=== PATIENT | female | born 1980 | race American Indian/Alaskan Native ===

== ENCOUNTER 2017-04-13 11:35 | Emergency (ER) | payer SELFPAY ==
[2017-04-13 11:47] VITALS: BP 119/73
[2017-04-13] MEDS ORDERED: MOTRIN PO ONE (14:19)
--- NOTE | 2017-04-13 14:25 | Emergency Department Report ---
Chief Complaint: Extremity Injury, Lower Stated Complaint: RIGHT FOOT/ANKLE PAIN Time Seen by Provider: 04/13/17 13:55 - HPI History of Present Illness: Patient is a 37-year-old Pakistani female who states that she has had pain for the last month her right ankle and right foot. Patient states she fell while walking on some stairs. Patient did not receive medical care at that time. Patient states the pain is 8 out of 10 in severity. She is having a limp with ambulation. Patient states that she has a difficult time wearing some shoes. - ROS Review of Systems: Review of systems is negative except for those elements in the HPI - Exam Vital Signs: Vital Signs 04/13/17 11:45 Temperature 98.3 F Pulse Rate 79 Respiratory 18 Rate Blood Pressure 119/73 O2 Sat by Pulse 96 Oximetry Physical Exam: Focused physical exam there is tenderness at the lateral malleolus of the right lower extremity with minor swelling. There is also pain on the dorsum of the right foot. No deformity no laceration no bruising is noted at this time MSE screening note: Focused history and physical exam performed. Due to findings the following was ordered: An x-ray of the right ankle and foot has been ordered ED Disposition for MSE Condition: Stable Referrals: PRIMARY CARE [Primary Care Provider] - 3-5 Days
--- NOTE | 2017-04-13 14:53 | XRay Report ---
RIGHT FOOT, 3 views: History: Fall The bony architecture is intact. Bony alignment is normal. No soft tissue abnormalities are seen. The joint spaces appear preserved. IMPRESSION: Normal right foot.
--- NOTE | 2017-04-13 14:53 | XRay Report ---
RIGHT ANKLE, 3 views: History: Fall. Bone mineralization is normal. No acute osseous abnormality or joint pathology is identified. The soft tissues are unremarkable. IMPRESSION: Normal study.
--- NOTE | 2017-04-13 15:20 | Emergency Department Report ---
HPI - General Chief Complaint: Extremity Injury, Lower Time Seen by Provider: 04/13/17 13:55 - HPI HPI: This is a 37-year-old female who presents to ED with right ankle pain 1 month. Patient was initially screened by Dr. Berrios. She denies any other symptoms. SEE MSE Note. ED Past Medical Hx - Past Medical History Hx Hypertension: No Hx Congestive Heart Failure: No Hx Diabetes: No Hx Liver Disease: No (Incidental findings of benign liver lesions found on abdominal u/s ) Hx Renal Disease: No Hx Headaches / Migraines: Yes Hx Asthma: No Hx COPD: No Hx HIV: No - Social History Smoking Status: Never Smoker - Medications Home Medications: Home Medications Medication Instructions Recorded Confirmed Last Taken Type ALPRAZolam [Xanax TAB] 0.5 mg PO BID 08/19/14 12/08/14 12/07/14 10:00 History ARIPiprazole [Abilify TAB] 2 mg PO HS 08/19/14 12/08/14 12/06/14 History Sertraline [Zoloft] 50 mg PO BID 08/19/14 12/08/14 12/07/14 10:00 History oxyCODONE /ACETAMINOPHEN [Percocet 1 tab PO Q4HR PRN #40 tablet 12/10/14 Unknown Rx 5/325 mg] Cyclobenzaprine [Flexeril] 10 mg PO QHS PRN #20 tablet 04/13/17 Unknown Rx Ibuprofen [Motrin 800 MG tab] 800 mg PO TID PRN #30 tablet 04/13/17 Unknown Rx ED Review of Systems ROS: Stated complaint: RIGHT FOOT/ANKLE PAIN Other details as noted in HPI Constitutional: denies: chills, fever Eyes: denies: eye pain, eye discharge, vision change ENT: denies: ear pain, throat pain Respiratory: denies: cough, shortness of breath, wheezing Cardiovascular: denies: chest pain, palpitations Endocrine: no symptoms reported Gastrointestinal: denies: abdominal pain, nausea, diarrhea Genitourinary: denies: urgency, dysuria, discharge Musculoskeletal: denies: back pain, joint swelling, arthralgia Skin: denies: rash, lesions Neurological: denies: headache, weakness, paresthesias Psychiatric: denies: anxiety, depression Hematological/Lymphatic: denies: easy bleeding, easy bruising Physical Exam - Physical Exam Vital Signs: Vital Signs 04/13/17 11:45 Temperature 98.3 F Pulse Rate 79 Respiratory 18 Rate Blood Pressure 119/73 O2 Sat by Pulse 96 Oximetry Physical Exam: GENERAL: Alert and oriented x3, no apparent distress, Normal Gait, atraumatic. HEAD: Head is normocephalic and a-traumatic. EXTREMITIES/MUSCULOSKELETAL: No cyanosis, clubbing, rash, lesions or edema. Full ROM bilaterally. UE/LE Pulses 2+ bilaterally. LE 5+ strength bilaterally, ankle joint is intact, full range of motion. Non-erythematous, nonedematous. She was able to bear some weight on the right foot. NEUROLOGIC: The patient is cooperative with no focal neurologic deficits. Normal speech. Normal sensation in bilateral upper and lower extremities, No loss of sensation, SKIN: Warm and dry, No lesions, No ulceration or induration present. ED Course Vital Signs 04/13/17 11:45 Temperature 98.3 F Pulse Rate 79 Respiratory 18 Rate Blood Pressure 119/73 O2 Sat by Pulse 96 Oximetry ED Medical Decision Making - Radiology Data Radiology results: report reviewed, image reviewed Ordering Physician: JUDE BERRIOS MD Date of Service: 04/13/17 Procedure(s): XR foot 2V RT Accession Number(s): [id number] cc: JUDE BERRIOS MD Fluoro Time In Minutes: RIGHT FOOT, 3 views: History: Fall The bony architecture is intact. Bony alignment is normal. No soft tissue abnormalities are seen. The joint spaces appear preserved. IMPRESSION: Normal right foot. Transcribed By: TTR Dictated By: LEONARD CASTRO JR, MD Electronically Authenticated By: LEONARD CASTRO JR, MD Signed Date/Time: 04/13/17 1449 - Medical Decision Making 37-year-old female presents to ED with foot pain ED course: Patient received x-rays of the foot and ankle. She shows no abnormal findings. I discussed this with the patient. Vital signs are normal patient is in no acute distress Discussed with patient follow-up with primary care physician. Discussed the patient and take medications as prescribed. Patient has no neurological deficit. Patient is alert and oriented 3 and understands all instructions given. Discussed drowsiness effect of Flexeril makes her drowsy and not to operate machinery while taking flexeril. Discussed the patient and his symptoms does not result to follow-up with orthopedic Critical care attestation.: If time is entered above; I have spent that time in minutes in the direct care of this critically ill patient, excluding procedure time. ED Disposition Clinical Impression: Foot pain, right Ankle sprain Qualifiers: Encounter type: initial encounter Involved ligament of ankle: other ligament Laterality: right Qualified Code(s): S93.491A - Sprain of other ligament of right ankle, initial encounter Disposition: TO HOME OR SELFCARE Is pt being admited?: No Does the pt Need Aspirin: No Condition: Stable Instructions: Ankle Sprain (ED), Arthralgia (ED), Ankle Exercises (GEN) Additional Instructions: Make sure to follow up with the primary care physician as discussed. Take all your medications as you've been prescribed. If you have any worsening symptoms or develop new symptoms please return to ED immediately. Prescriptions: Cyclobenzaprine [Flexeril] 10 mg PO QHS PRN #20 tablet PRN Reason: Muscle Spasm Ibuprofen [Motrin 800 MG tab] 800 mg PO TID PRN #30 tablet PRN Reason: Pain Referrals: PRIMARY CARE, [Primary Care Provider] - 3-5 Days [facility] [Outside] - 3-5 Days [facility] [Outside] - 3-5 Days Forms: Work/School Release Form(ED) Time of Disposition: 15:41
== END 2017-04-13 16:06 | disposition home or self-care (01) ==
LOC: ED 11:35
DX: S93.401A Sprain of unspecified ligament of right ankle, initial encounter (principal); G43.909 Migraine, unspecified, not intractable, without status migrainosus; X58.XXXA Exposure to other specified factors, initial encounter; Y93.89 Activity, other specified; Y92.89 Other specified places as the place of occurrence of the external cause; Y99.8 Other external cause status
CPT/HCPCS: 99283

== ENCOUNTER 2018-09-17 14:48 | Emergency (ER) | payer MEDICAID ==
--- NOTE | 2018-09-17 15:06 | Emergency Department Report ---
Blank Doc - Documentation Documentation: This is a 38-year-old female that presents with right foot pain. Stated had a fall a few months ago and now pain is getting worse and radiation to right leg. This initial assessment/diagnostic orders/clinical plan/treatment(s) is/are subject to change based on patient's health status, clinical progression and re- assessment by fellow clinical providers in the ED. Further treatment and workup at subsequent clinical providers discretion. Patient/guardians urged not to elope from the ED as their condition may be serious if not clinically assessed and managed. Initial orders include: 1- Patient sent to [facility] for further evaluation and treatment 2- xray
[2018-09-17 15:07] VITALS: BP 114/72
--- NOTE | 2018-09-17 16:14 | XRay Report ---
PROCEDURE: XR FOOT 3+V RT TECHNIQUE: foot radiographs, AP, lateral, and oblique views. HISTORY: foot pain COMPARISONS: None . FINDINGS: AP, lateral and oblique views of the right foot were acquired and compared to the prior exa mination of April 13, 2017. These images demonstrate oblique nondisplaced fracture of the fourth p roximal phalanx with fracture line extending from the proximal, medial metaphysis of the bones of the distal, lateral aspect of the articular surface. This is new in comparison to prior exam of 2017. IMPRESSION: Oblique fracture of fourth proximal phalanx This document is electronically signed by Yosef Herman MD., Sep 17 2018 04:12:24 PM ET
--- NOTE | 2018-09-17 19:13 | Emergency Department Report ---
ED Extremity Problem HPI - General Chief complaint: Extremity Injury, Lower Stated complaint: RT FOOT POSS BROKEN/PAIN Time Seen by Provider: 09/17/18 15:05 Source: patient Mode of arrival: Ambulatory Limitations: No Limitations - History of Present Illness Initial comments: Pt is a 38 yo female who presents to the ED with c/o right 4th toe pain that be jass a month and a half ago. Pt states she was getting out of the shower and the floor was wet and she slipped and hit her 4th toe against the wall. She [place] [facility] [place] and was diagnosed with a 4th phlanx fx. She states she saw an orthopedic and had another XR last week but states she still has not gotten the results. Pt states she would like a second opinion. - Related Data Home Medications Medication Instructions Recorded Confirmed Last Taken ALPRAZolam [Xanax TAB] 0.5 mg PO BID 08/19/14 12/08/14 12/07/14 10:00 ARIPiprazole [Abilify TAB] 2 mg PO HS 08/19/14 12/08/14 12/06/14 Sertraline [Zoloft] 50 mg PO BID 08/19/14 12/08/14 12/07/14 10:00 Previous Rx's Medication Instructions Recorded Last Taken Type oxyCODONE /ACETAMINOPHEN [Percocet 1 tab PO Q4HR PRN #40 tablet 12/10/14 Unknown Rx 5/325 mg] Cyclobenzaprine [Flexeril] 10 mg PO QHS PRN #20 tablet 04/13/17 Unknown Rx Ibuprofen [Motrin 800 MG tab] 800 mg PO TID PRN #30 tablet 04/13/17 Unknown Rx Allergies Allergy/AdvReac Type Severity Reaction Status Date / Time No Known Allergies Allergy Verified 12/01/14 13:55 ED Review of Systems ROS: Stated complaint: RT FOOT POSS BROKEN/PAIN Other details as noted in HPI Comment: All other systems reviewed and negative ED Past Medical Hx - Past Medical History Previous Medical History?: Yes Hx Hypertension: No Hx Congestive Heart Failure: No Hx Diabetes: No Hx Liver Disease: No (Incidental findings of benign liver lesions found on abdominal u/s ) Hx Renal Disease: No Hx Headaches / Migraines: Yes Hx Asthma: No Hx COPD: No Hx HIV: No - Surgical History Past Surgical History?: Yes Additional Surgical History: hysterectomy - Social History Smoking Status: Former Smoker Substance Use Type: None - Medications Home Medications: Home Medications Medication Instructions Recorded Confirmed Last Taken Type ALPRAZolam [Xanax TAB] 0.5 mg PO BID 08/19/14 12/08/14 12/07/14 10:00 History ARIPiprazole [Abilify TAB] 2 mg PO HS 08/19/14 12/08/14 12/06/14 History Sertraline [Zoloft] 50 mg PO BID 08/19/14 12/08/14 12/07/14 10:00 History oxyCODONE /ACETAMINOPHEN [Percocet 1 tab PO Q4HR PRN #40 tablet 12/10/14 Unknown Rx 5/325 mg] Cyclobenzaprine [Flexeril] 10 mg PO QHS PRN #20 tablet 04/13/17 Unknown Rx Ibuprofen [Motrin 800 MG tab] 800 mg PO TID PRN #30 tablet 04/13/17 Unknown Rx ED Physical Exam - General Limitations: No Limitations General appearance: alert, in no apparent distress - Head Head exam: Present: atraumatic, normocephalic - Eye Eye exam: Present: normal appearance, PERRL - ENT ENT exam: Present: mucous membranes moist - Respiratory Respiratory exam: Absent: respiratory distress - Extremities Exam Extremities exam: Present: other (very small amount of edema to the right 4th toe, FROM of all the right toes, FROM of the right foot and ankle, neurovascularly intact, pt able to move all toes) ED Course Vital Signs 09/17/18 09/17/18 15:05 19:20 Temperature 98.2 F Pulse Rate 95 H 68 Respiratory 18 16 Rate Blood Pressure 114/72 O2 Sat by Pulse 97 97 Oximetry ED Medical Decision Making - Radiology Data Radiology results: report reviewed PROCEDURE: XR FOOT 3+V RT TECHNIQUE: foot radiographs, AP, lateral, and oblique views. HISTORY: foot pain COMPARISONS: None . FINDINGS: AP, lateral and oblique views of the right foot were acquired and compared to the prior examination of April 13, 2017. These images demonstrate oblique nondisplaced fracture of the fourth proximal phalanx with fracture line extending from the proximal, medial metaphysis of the bones of the distal, lateral aspect of the articular surface. This is new in comparison to prior exam of 2016. IMPRESSION: Oblique fracture of fourth proximal phalanx This document is electronically signed by Yosef Herman MD., Sep 17 2018 04:12:24 PM ET - Medical Decision Making Pt is a 38 yo female who presents to the ED with c/o right 4th toe pain that began a month and a half ago. Pt states she was getting out of the shower and the floor was wet and she slipped and hit her 4th toe against the wall. She states she [place] [facility] [place] and was diagnosed with a 4th phlanx fx. She states she saw an orthopedic and had another XR last week but states she still has not gotten the results. Pt states she would like a second opinion. XR shows Oblique fracture of fourth proximal phalanx. pt has FROM, neurovascularly intact, ambulatory without difficulty with orthoshoe. advised pt to continue to wear her orthoshoe and use her crutches. follow up with Dr. vásquez, orthopedic in the next 2-3 days. return to the emergency room for any new or worsening symptoms. Critical care attestation.: If time is entered above; I have spent that time in minutes in the direct care of this critically ill patient, excluding procedure time. ED Disposition Clinical Impression: Phalanx fracture, foot Qualifiers: Encounter type: sequela Toe: lesser toe Fracture type: closed Phalanx: proximal Fracture alignment: nondisplaced Laterality: right Qualified Code(s): S92.514S - Nondisplaced fracture of proximal phalanx of right lesser toe(s), sequela Disposition: DC-01 TO HOME OR SELFCARE Is pt being admited?: No Does the pt Need Aspirin: No Condition: Stable Instructions: Toe Fracture (ED) Additional Instructions: Please follow up with Dr. Vásquez, orthopedic doctor in the next 2-3 days. Please continue to ice the toe and elevate the leg. continue wearing your orthoshoe. Please use your crutches. Return to the emergency room for any new or worsening symptoms. Referrals: DIMITRIS DELEON MD [Primary Care Provider] - 2-3 Days LUCILA VÁSQUEZ MD [Staff Physician] - 2-3 Days Time of Disposition: 19:15 Print Language: PAKISTANI
== END 2018-09-17 19:20 | disposition home or self-care (01) ==
LOC: ED 14:48
DX: S92.514A Nondisplaced fracture of proximal phalanx of right lesser toe(s), initial encounter for closed fracture (principal); G43.909 Migraine, unspecified, not intractable, without status migrainosus; Z90.710 Acquired absence of both cervix and uterus; Z87.891 Personal history of nicotine dependence; W22.01XA Walked into wall, initial encounter; Y93.89 Activity, other specified; Y92.091 Bathroom in other non-institutional residence as the place of occurrence of the external cause; Y99.8 Other external cause status
CPT/HCPCS: 99283

== ENCOUNTER 2018-12-23 10:00 | Emergency (ER) | payer MEDICAID ==
[2018-12-23 10:15] VITALS: BP 151/88
--- NOTE | 2018-12-23 11:21 | Emergency Department Report ---
ED General Adult HPI - General Chief complaint: Extremity Problem,Nontraumatic Stated complaint: RT SIDE SWOLLEN/NUMB/ACHES Time Seen by Provider: 12/23/18 10:57 Source: patient Mode of arrival: Ambulatory Limitations: No Limitations - History of Present Illness Initial comments: Patient complains of generalized pain in her joints for weeks. Reports she saw urgent care last week for same. reports she received norco rx from urgent care. Denies drugs/alcohol. -: Gradual, week(s) Radiation: non-radiation Severity scale (0 -10): 1 Quality: aching Consistency: intermittent Improves with: none Worsens with: none Associated Symptoms: denies: confusion, chest pain, cough, diaphoresis, fever/chills, headaches, loss of appetite, malaise, nausea/vomiting, rash, seizure, shortness of breath, syncope, weakness - Related Data Home Medications Medication Instructions Recorded Confirmed Last Taken ALPRAZolam [Xanax TAB] 0.5 mg PO BID 08/19/14 12/08/14 12/07/14 10:00 ARIPiprazole [Abilify TAB] 2 mg PO HS 08/19/14 12/08/14 12/06/14 Sertraline [Zoloft] 50 mg PO BID 08/19/14 12/08/14 12/07/14 10:00 Previous Rx's Medication Instructions Recorded Last Taken Type oxyCODONE /ACETAMINOPHEN [Percocet 1 tab PO Q4HR PRN #40 tablet 12/10/14 Unknown Rx 5/325 mg] Cyclobenzaprine [Flexeril] 10 mg PO QHS PRN #20 tablet 04/13/17 Unknown Rx Ibuprofen [Motrin 800 MG tab] 800 mg PO TID PRN #30 tablet 04/13/17 Unknown Rx Allergies Allergy/AdvReac Type Severity Reaction Status Date / Time No Known Allergies Allergy Verified 12/01/14 13:55 ED Review of Systems ROS: Stated complaint: RT SIDE SWOLLEN/NUMB/ACHES Other details as noted in HPI Other: GENERAL: No weight change, fatigue, fever, chills, or night sweats SKIN: No changes in skin or hair, no itching, no rashes, no jaundice HEAD: No trauma, headache, or visual changes EYES: No blurriness, tearing, itching, acute visual loss, conjunctival discoloration, or scleral icterus EARS: No hearing loss, tinnitus, vertigo, or earache NOSE: No rhinorrhea, stuffiness, sneezing, itching, or epistaxis MOUTH: No bleeding gums, hoarseness, sore throat, or swelling CARDIAC: No new murmur, chest pain, palpitations, dyspnea on exertion, orthopnea, PND, or edema RESPIRATORY: No shortness of breath, wheeze, cough, sputum production, hemoptysis, pneumonia, asthma, bronchitis, or emphysema GI: No change in appetite, nausea, vomiting, dysphagia, diarrhea, constipation, hematemesis, melena, hematochezia, or abdominal pain URINARY: No frequency, urgency, polyuria, dysuria, hematuria, or incontinence MUSCULOSKELETAL: Generalized pain. No muscle weakness, joint stiffness, decrease in range of motion, redness, swelling NEUROLOGIC: No headache, loss of sensation, numbness, tingling, tremors, weakness, paralysis, seizures HEMATOLOGIC: No anemia, easy bruising, bleeding, petechiae, or purpura ENDOCRINE: No hot or cold intolerance, sweating, polyuria, polydipsia or, polyphagia no thyroid problems PSYCHIATRIC: No change in mood, no anxiety, no depression ED Past Medical Hx - Past Medical History Hx Hypertension: No Hx Congestive Heart Failure: No Hx Diabetes: No Hx Liver Disease: No (Incidental findings of benign liver lesions found on abdominal u/s ) Hx Renal Disease: No Hx Headaches / Migraines: Yes Hx Asthma: No Hx COPD: No Hx HIV: No - Surgical History Additional Surgical History: hysterectomy - Social History Smoking Status: Never Smoker Substance Use Type: None - Medications Home Medications: Home Medications Medication Instructions Recorded Confirmed Last Taken Type ALPRAZolam [Xanax TAB] 0.5 mg PO BID 08/19/14 12/08/14 12/07/14 10:00 History ARIPiprazole [Abilify TAB] 2 mg PO HS 08/19/14 12/08/14 12/06/14 History Sertraline [Zoloft] 50 mg PO BID 08/19/14 12/08/14 12/07/14 10:00 History oxyCODONE /ACETAMINOPHEN [Percocet 1 tab PO Q4HR PRN #40 tablet 12/10/14 Unknown Rx 5/325 mg] Cyclobenzaprine [Flexeril] 10 mg PO QHS PRN #20 tablet 04/13/17 Unknown Rx Ibuprofen [Motrin 800 MG tab] 800 mg PO TID PRN #30 tablet 04/13/17 Unknown Rx ED Physical Exam - General Limitations: No Limitations - Other Other exam information: GENERAL: Patient in no acute distress HEAD: Normocephalic, atraumatic EYES: PERRLA, EOM intact, no scleral icterus, no conjunctival hemorrhage, visual munson and acuity wnl NOSE: No tenderness, discharge, sinus tenderness MOUTH: No erythema, bleeding, exudate HEART: Regular rate and rhythm, no murmur, S1-S2 are auscultated, pulses are symmetric LUNGS: Bilateral breath sounds, No tachypnea, No retractions, No wheezing, rales, rhonchi MUSCULOSKELETAL: Normal joint range of motion, no redness, no swelling, no tenderness NEUROLOGIC: GCS 15, Alert and Oriented x3, Cranial nerves intact, normal sensation, normal strength, normal gait, no cerebellar deficit, NIHSS 0 PSYCHIATRIC: No homicidal or suicidal ideation, no anxiety, no depression, no hallucinations SKIN: Skin is warm and dry, no wounds, no rashes ED Course Vital Signs 12/23/18 10:12 Temperature 99.2 F Pulse Rate 86 Respiratory 16 Rate Blood Pressure 151/88 [Left] O2 Sat by Pulse 96 Oximetry ED Medical Decision Making - Medical Decision Making Patient comfortable. Reports no PCP. Concern for possible rheumatological condition. Will provide patient with outpatient PCP contact. Plan discharge with outpatient follow up. Agrees to return if any worsening. Critical care attestation.: If time is entered above; I have spent that time in minutes in the direct care of this critically ill patient, excluding procedure time. ED Disposition Clinical Impression: Pain Disposition: DC-01 TO HOME OR SELFCARE Is pt being admited?: No Condition: Stable Instructions: Arthralgia (ED) Referrals: [facility] [Outside] - 2-3 Days JANICE CARPENTER MD [Staff Physician] - 2-3 Days Time of Disposition: 11:06
== END 2018-12-23 11:12 | disposition home or self-care (01) ==
LOC: ED 10:00
DX: M79.10 Myalgia, unspecified site (principal); G43.909 Migraine, unspecified, not intractable, without status migrainosus; Z90.710 Acquired absence of both cervix and uterus; Z79.899 Other long term (current) drug therapy
CPT/HCPCS: 99282

== ENCOUNTER 2019-05-14 07:23 | Emergency (ER) | payer MEDICAID ==
[2019-05-14 07:42] VITALS: BP 118/77
== END 2019-05-14 10:44 | disposition left against medical advice (07) ==
LOC: ED 07:23
DX: M79.671 Pain in right foot (principal); Z53.21 Procedure and treatment not carried out due to patient leaving prior to being seen by health care provider

== ENCOUNTER 2020-03-16 17:46 | Emergency (ER) | payer MEDICAID ==
[2020-03-16] MEDS ORDERED: ONDANSETRON 4 MG ODT TAB PO ONE (19:59)
[2020-03-16] MEDS ORDERED: FAMOTIDINE 20 MG TAB PO ONE (19:59)
[2020-03-16] MEDS ORDERED: HYOSCYAMINE SUBL 0.125 MG TAB SL ONE (19:59)
[2020-03-16] MEDS ORDERED: ALUM-MAG HYDROXIDE-SIMETHICONE 200-200-20MG/5ML ORAL LIQD 30 ML PO ONE (19:59)
[2020-03-16 20:24] LABS: Basophils % (Auto) 0.4 % (0.0-1.8); Eosinophils # (Auto) 0.2 K/mm3 (0.0-0.4); Eosinophils % (Auto) 1.5 % (0.0-4.3); Hematocrit 42.4 % (30.3-42.9); Hemoglobin 14.3 gm/dl (10.1-14.3); Lymphocytes # (Auto) 3.6 K/mm3 (1.2-5.4); Lymphocytes % (Auto) 29.9 % (13.4-35.0); Mean Corpuscular HGB Conc 34 % (30-34); Mean Corpuscular Volume 95 fl (79-97); Monocytes # (Auto) 0.8 K/mm3 (0.0-0.8); Platelet Count 286 K/mm3 (140-440); Red Blood Count 4.48 M/mm3 (3.65-5.03)
[2020-03-16 20:43] LABS: Bilirubin,Urine NEG (Negative); Blood,Urine NEG (Negative); Color,Urine Yellow (Yellow); Mucus,Urine 3+ /HPF; Urobilinogen,Urine < 2.0 mg/dL (<2.0)
[2020-03-16 21:14] LABS: Alanine Aminotransferase 14 units/L (7-56); BUN/Creatinine Ratio 13; Blood Urea Nitrogen 9 mg/dL (7-17); Calcium 9.3 mg/dL (8.4-10.2)
[2020-03-16 21:15] LABS: Albumin 4.4 g/dL (3.9-5)
--- NOTE | 2020-03-16 21:23 | Emergency Department Report ---
ED General Adult HPI - General Chief complaint: Abdominal Pain Stated complaint: SHARP ABD PAINS Time Seen by Provider: 03/16/20 19:59 Source: patient Mode of arrival: Ambulatory Limitations: No Limitations - History of Present Illness Initial comments: Patient is a 40-year-old female presents emergency room with complaints of generalized abdominal cramping that began yesterday. She has associated nausea, vomiting, diarrhea. She states that the last thing she ate was a salad before she became ill. She denies any sick contacts or anyone else with the same symptoms. She denies any recent travel. She denies any hematochezia, melena, hematemesis, dysuria, vaginal discharge or irritation. She states that she has a burning sensation in her stomach and chest. PMHx anxiety. No allergies to medications. She states that she had a full hysterectomy. - Related Data Home Medications Medication Instructions Recorded Confirmed Last Taken ALPRAZolam [Xanax TAB] 0.5 mg PO BID 08/19/14 12/08/14 12/07/14 10:00 ARIPiprazole [Abilify TAB] 2 mg PO HS 08/19/14 12/08/14 12/06/14 Sertraline [Zoloft] 50 mg PO BID 08/19/14 12/08/14 12/07/14 10:00 Previous Rx's Medication Instructions Recorded Last Taken Type oxyCODONE /ACETAMINOPHEN [Percocet 1 tab PO Q4HR PRN #40 tablet 12/10/14 Unknown Rx 5/325 mg] Cyclobenzaprine [Flexeril] 10 mg PO QHS PRN #20 tablet 04/13/17 Unknown Rx Ibuprofen [Motrin 800 MG tab] 800 mg PO TID PRN #30 tablet 04/13/17 Unknown Rx Famotidine [Pepcid] 40 mg PO QHS #10 tablet 03/16/20 Unknown Rx Ondansetron [Zofran Odt] 4 mg PO Q8HR PRN #7 tab.rapdis 03/16/20 Unknown Rx Allergies Allergy/AdvReac Type Severity Reaction Status Date / Time No Known Allergies Allergy Verified 12/01/14 13:55 ED Review of Systems ROS: Stated complaint: SHARP ABD PAINS Other details as noted in HPI Comment: All other systems reviewed and negative ED Past Medical Hx - Past Medical History Previous Medical History?: Yes Hx Hypertension: No Hx Congestive Heart Failure: No Hx Diabetes: No Hx Liver Disease: (Incidental findings of benign liver lesions found on abdominal u/s ) Hx Renal Disease: No Hx Headaches / Migraines: Yes Hx Asthma: No Hx COPD: No Hx HIV: No - Surgical History Past Surgical History?: Yes Additional Surgical History: hysterectomy, myomectomy. C section - Social History Smoking Status: Never Smoker - Medications Home Medications: Home Medications Medication Instructions Recorded Confirmed Last Taken Type ALPRAZolam [Xanax TAB] 0.5 mg PO BID 08/19/14 12/08/14 12/07/14 10:00 History ARIPiprazole [Abilify TAB] 2 mg PO HS 08/19/14 12/08/14 12/06/14 History Sertraline [Zoloft] 50 mg PO BID 08/19/14 12/08/14 12/07/14 10:00 History oxyCODONE /ACETAMINOPHEN [Percocet 1 tab PO Q4HR PRN #40 tablet 12/10/14 Unknown Rx 5/325 mg] Cyclobenzaprine [Flexeril] 10 mg PO QHS PRN #20 tablet 04/13/17 Unknown Rx Ibuprofen [Motrin 800 MG tab] 800 mg PO TID PRN #30 tablet 04/13/17 Unknown Rx Famotidine [Pepcid] 40 mg PO QHS #10 tablet 03/16/20 Unknown Rx Ondansetron [Zofran Odt] 4 mg PO Q8HR PRN #7 tab.rapdis 03/16/20 Unknown Rx ED Physical Exam - General Limitations: No Limitations General appearance: alert, in no apparent distress - Head Head exam: Present: atraumatic, normocephalic - Eye Eye exam: Present: normal appearance - ENT ENT exam: Present: mucous membranes moist - Respiratory Respiratory exam: Present: normal lung sounds bilaterally. Absent: respiratory distress, wheezes, rales, rhonchi, stridor, chest wall tenderness, accessory muscle use, decreased breath sounds, prolonged expiratory - Cardiovascular Cardiovascular Exam: Present: regular rate, normal rhythm, normal heart sounds. Absent: systolic murmur, diastolic murmur, rubs, gallop - GI/Abdominal GI/Abdominal exam: Present: soft, normal bowel sounds. Absent: distended, tenderness, guarding, rebound, rigid - Neurological Exam Neurological exam: Present: alert, oriented X3 - Psychiatric Psychiatric exam: Present: normal affect, normal mood - Skin Skin exam: Present: warm, dry, intact ED Course Vital Signs 03/16/20 18:03 Temperature 98.1 F Pulse Rate 79 Respiratory 18 Rate Blood Pressure 114/69 O2 Sat by Pulse 96 Oximetry ED Medical Decision Making - Lab Data Result diagrams: 03/16/20 20:11 03/16/20 20:11 Lab Results 03/16/20 03/16/20 03/16/20 Range/Units 20:11 20:11 20:20 WBC 12.0 H (4.5-11.0) K/mm3 RBC 4.48 (3.65-5.03) M/mm3 Hgb 14.3 (10.1-14.3) gm/dl Hct 42.4 (30.3-42.9) % MCV 95 (79-97) fl MCH 32 (28-32) pg MCHC 34 (30-34) % RDW 13.0 L (13.2-15.2) % Plt Count 286 (140-440) K/mm3 Lymph % (Auto) 29.9 (13.4-35.0) % [place] % (Auto) 7.0 (0.0-7.3) % Eos % (Auto) 1.5 (0.0-4.3) % Baso % (Auto) 0.4 (0.0-1.8) % Lymph # (Auto) 3.6 (1.2-5.4) K/mm3 [place] # (Auto) 0.8 (0.0-0.8) K/mm3 Eos # (Auto) 0.2 (0.0-0.4) K/mm3 Baso # (Auto) 0.0 (0.0-0.1) K/mm3 Seg Neutrophils % 61.2 (40.0-70.0) % Seg Neutrophils # 7.3 (1.8-7.7) K/mm3 Sodium 140 (137-145) mmol/L Potassium 3.9 (3.6-5.0) mmol/L Chloride 105.2 (98-107) mmol/L Carbon Dioxide 21 L (22-30) mmol/L Anion Gap 18 mmol/L BUN 9 (7-17) mg/dL Creatinine 0.7 (0.6-1.2) mg/dL Estimated GFR > 60 ml/min BUN/Creatinine Ratio 13 % Glucose 108 H (65-100) mg/dL Calcium 9.3 (8.4-10.2) mg/dL Total Bilirubin 0.50 (0.1-1.2) mg/dL AST 16 (5-40) units/L ALT 14 (7-56) units/L Alkaline Phosphatase 78 (35-129) units/L Total Protein 7.4 (6.3-8.2) g/dL Albumin 4.4 (3.9-5) g/dL Albumin/Globulin Ratio 1.5 % Lipase 21 (13-60) units/L Urine Color Yellow (Yellow) Urine Turbidity Clear (Clear) Urine pH 5.0 (5.0-7.0) Ur Specific [place] 1.028 (1.003-1.030) Urine Protein 30 mg/dl (Negative) mg/dL Urine Glucose (UA) Neg (Negative) mg/dL Urine Ketones Neg (Negative) mg/dL Urine Blood Neg (Negative) Urine Nitrite Neg (Negative) Urine Bilirubin Neg (Negative) Urine Urobilinogen < 2.0 (<2.0) mg/dL Ur Leukocyte Esterase Neg (Negative) Urine WBC (Auto) 1.0 (0.0-6.0) /HPF Urine RBC (Auto) 2.0 (0.0-6.0) /HPF U Epithel Cells (Auto) 14.0 H (0-13.0) /HPF Urine Mucus 3+ /HPF - Medical Decision Making Patient is a 40-year-old female presents emergency room with complaints of generalized abdominal cramping that began yesterday. She has associated nausea, vomiting, diarrhea. She states that the last thing she ate was a salad before she became ill. She denies any sick contacts or anyone else with the same symptoms. She denies any recent travel. She denies any hematochezia, melena, hematemesis, dysuria, vaginal discharge or irritation. She states that she has a burning sensation in her stomach and chest. PMHx anxiety. No allergies to medications. She states that she had a full hysterectomy. Vitals are normal. No abdominal tenderness on exam, no guarding, no rebound, no rigidity, normal bowel sounds, no peritoneal signs. Labs are stable. UA without evidence of UTI. Patient given Pepcid, Maalox, Zofran, Levsin. Patient symptoms improved and she was able to tolerate p.o. intake without any difficulty. She had no further episodes of vomiting or diarrhea while in the emergency department. Symptoms most likely related to gastroenteritis. Do not suspect acute emergent intra-abdominal pathology at this time, patient will need to be reexamined within the next 2 days, patient referred to primary care physician, discussed very strict return precautions with patient. Patient given prescription for Pepcid and Zofran. Advised patient Please take medication as prescribed. Increase your water intake. Eat a bland liquid diet and slowly advance her diet as tolerated. Follow-up with a primary care doctor. Return to emergency room for any new or worsening symptoms. - Differential Diagnosis Gastroenteritis, UTI, PUD, gastritis, cholecystitis, pancreatitis, viral Critical care attestation.: If time is entered above; I have spent that time in minutes in the direct care of this critically ill patient, excluding procedure time. ED Disposition Clinical Impression: Abdominal cramping, Nausea vomiting and diarrhea GERD (gastroesophageal reflux disease) Qualifiers: Esophagitis presence: without esophagitis Qualified Code(s): K21.9 - Gastro- esophageal reflux disease without esophagitis Disposition: DC-01 TO HOME OR SELFCARE Is pt being admited?: No Does the pt Need Aspirin: No Condition: Stable Instructions: Viral Gastroenteritis, Adult, Heartburn, [id number], Abdominal Pain (ED) Additional Instructions: Please take medication as prescribed. Increase your water intake. Eat a bland liquid diet and slowly advance her diet as tolerated. Follow-up with a primary care doctor. Return to emergency room for any new or worsening symptoms. Prescriptions: Famotidine [Pepcid] 40 mg PO QHS #10 tablet Ondansetron [Zofran Odt] 4 mg PO Q8HR PRN #7 tab.rapdis PRN Reason: Nausea And Vomiting Referrals: BENITO DOMINIQUE MD [Primary Care Provider] - 2-3 Days JANICE CARPENTER MD [Staff Physician] - 2-3 Days [facility] [Provider Group] - 2-3 Days Forms: Work/School Release Form(ED) Time of Disposition: 21:21 Print Language: URDU
[2020-03-17 08:15] VITALS: BP 111/67
== END 2020-03-16 22:00 | disposition home or self-care (01) ==
LOC: ED 17:46
DX: K21.9 Gastro-esophageal reflux disease without esophagitis (principal); R11.2 Nausea with vomiting, unspecified; R10.84 Generalized abdominal pain; G43.909 Migraine, unspecified, not intractable, without status migrainosus; Z90.710 Acquired absence of both cervix and uterus; Z98.890 Other specified postprocedural states; Z79.899 Other long term (current) drug therapy
CPT/HCPCS: 36415; 80053; 81001; 83690; 85025; Q0162

== ENCOUNTER 2020-09-06 00:52 | Emergency (ER) | payer MEDICAID ==
[2020-09-06] MEDS ORDERED: IBUPROFEN 800 MG TAB PO ONE (02:32)
[2020-09-06] MEDS ORDERED: ACETAMINOPHEN 500 MG TAB PO STA (02:32)
--- NOTE | 2020-09-06 02:41 | Emergency Department Report ---
ED General Adult HPI - General Chief complaint: Extremity Injury, Lower Stated complaint: FOOT AND TOE SWOLLEN WITH DISCOLORATION Source: patient Mode of arrival: Ambulatory Limitations: No Limitations - History of Present Illness Initial comments: 40-year-old -[place] female patient presents with complaints of left foot pain x5 days. Patient states her pain began after an injury to the foot. She denies any numbness/tingling/difficulty moving her foot. No skin changes per patient. She states there is swelling to her little toe. Aleve and Tylenol help with the pain. She rates her pain as a 10/10 in severity. -: Sudden Consistency: constant - Related Data Home Medications Medication Instructions Recorded Confirmed Last Taken ALPRAZolam [Xanax TAB] 0.5 mg PO BID 08/19/14 12/08/14 12/07/14 10:00 ARIPiprazole [Abilify TAB] 2 mg PO HS 08/19/14 12/08/14 12/06/14 Sertraline [Zoloft] 50 mg PO BID 08/19/14 12/08/14 12/07/14 10:00 Previous Rx's Medication Instructions Recorded Last Taken Type oxyCODONE /ACETAMINOPHEN [Percocet 1 tab PO Q4HR PRN #40 tablet 12/10/14 Unknown Rx 5/325 mg] Cyclobenzaprine [Flexeril] 10 mg PO QHS PRN #20 tablet 04/13/17 Unknown Rx Famotidine [Pepcid] 40 mg PO QHS #10 tablet 03/16/20 Unknown Rx Ondansetron [Zofran Odt] 4 mg PO Q8HR PRN #7 tab.rapdis 03/16/20 Unknown Rx Ibuprofen [Motrin 800 MG tab] 800 mg PO TID PRN #30 tablet 09/06/20 Unknown Rx Allergies Allergy/AdvReac Type Severity Reaction Status Date / Time No Known Allergies Allergy Verified 12/01/14 13:55 ED Review of Systems ROS: Stated complaint: FOOT AND TOE SWOLLEN WITH DISCOLORATION Other details as noted in HPI Musculoskeletal: joint swelling, arthralgia Skin: denies: change in color Neurological: denies: numbness, paresthesias ED Past Medical Hx - Past Medical History Previous Medical History?: Yes Hx Hypertension: No Hx Congestive Heart Failure: No Hx Diabetes: No Hx Liver Disease: (Incidental findings of benign liver lesions found on abdominal u/s ) Hx Renal Disease: No Hx Headaches / Migraines: Yes Hx Asthma: No Hx COPD: No Hx HIV: No - Surgical History Past Surgical History?: Yes Additional Surgical History: hysterectomy, myomectomy. C section - Social History Smoking Status: Never Smoker - Medications Home Medications: Home Medications Medication Instructions Recorded Confirmed Last Taken Type ALPRAZolam [Xanax TAB] 0.5 mg PO BID 08/19/14 12/08/14 12/07/14 10:00 History ARIPiprazole [Abilify TAB] 2 mg PO HS 08/19/14 12/08/14 12/06/14 History Sertraline [Zoloft] 50 mg PO BID 08/19/14 12/08/14 12/07/14 10:00 History oxyCODONE /ACETAMINOPHEN [Percocet 1 tab PO Q4HR PRN #40 tablet 12/10/14 Unknown Rx 5/325 mg] Cyclobenzaprine [Flexeril] 10 mg PO QHS PRN #20 tablet 04/13/17 Unknown Rx Famotidine [Pepcid] 40 mg PO QHS #10 tablet 03/16/20 Unknown Rx Ondansetron [Zofran Odt] 4 mg PO Q8HR PRN #7 tab.rapdis 03/16/20 Unknown Rx Ibuprofen [Motrin 800 MG tab] 800 mg PO TID PRN #30 tablet 09/06/20 Unknown Rx ED Physical Exam - General Limitations: No Limitations General appearance: alert, in no apparent distress - Head Head exam: Present: atraumatic, normocephalic - Eye Eye exam: Present: normal appearance - Respiratory Respiratory exam: Absent: respiratory distress - Cardiovascular Cardiovascular Exam: Present: regular rate - Extremities Exam Extremities exam: Present: full ROM, other (Tenderness to palpation noted to the left distal fifth MT and phalange E with mild swelling noted no skin changes noted; patient has normal perfusion and sensation and range of motion of the toes;) - Neurological Exam Neurological exam: Present: alert, oriented X3 - Psychiatric Psychiatric exam: Present: normal affect, normal mood - Skin Skin exam: Present: warm, dry, intact, normal color. Absent: rash ED Course Vital Signs 09/06/20 09/06/20 02:38 03:47 Temperature 98.6 F Pulse Rate 77 Respiratory 20 20 Rate Blood Pressure 134/94 [Right] O2 Sat by Pulse 100 Oximetry ED Medical Decision Making - Radiology Data Radiology results: report reviewed LEFT FOOT 3 VIEWS INDICATION / CLINICAL INFORMATION: distal MT pain, worse in 5th MT and toe COMPARISON: None available. FINDINGS: BONES / JOINT(S): Nondisplaced fracture involving the shaft of the proximal phalanx of the fifth digit. No significant arthritis. SOFT TISSUES: No significant abnormality. - Medical Decision Making 40-year-old -[place] female patient presents with complaints of left foot pain x5 days. Patient states her pain began after an injury to the foot. She denies any numbness/tingling/difficulty moving her foot. No skin changes per patient. She states there is swelling to her little toe. Aleve and Tylenol help with the pain. She rates her pain as a 10/10 in severity. X-ray shows nondisplaced fracture of the fifth proximal phalange. Patient's toe yg taped and patient placed in a postop shoe. Patient to follow-up with podiatry within 3 to 5 days. Patient is well-appearing, her vitals are within normal limits, she is stable for discharge home. Discussed signs and symptoms that should prompt immediate return to the emergency department in detail patient verbalized understanding. Critical care attestation.: If time is entered above; I have spent that time in minutes in the direct care of this critically ill patient, excluding procedure time. ED Disposition Clinical Impression: Toe fracture, left Disposition: DC-01 TO HOME OR SELFCARE Is pt being admited?: No Condition: Stable Instructions: Toe Fracture Prescriptions: Ibuprofen [Motrin 800 MG tab] 800 mg PO TID PRN #30 tablet PRN Reason: Pain Referrals: MARCELLO MUSE MD [Staff Physician] - 3-5 Days
--- NOTE | 2020-09-06 03:04 | XRay Report ---
LEFT FOOT 3 VIEWS INDICATION / CLINICAL INFORMATION: distal MT pain, worse in 5th MT and toe COMPARISON: None available. FINDINGS: BONES / JOINT(S): Nondisplaced fracture involving the shaft of the proximal phalanx of the fifth digi t. No significant arthritis. SOFT TISSUES: No significant abnormality. ADDITIONAL FINDINGS: None. Signer Name: Teja Dominguez MD Signed: 09/06/2020 3:00 AM Workstation Name: [id number]
[2020-09-06 03:48] VITALS: BP 134/94
== END 2020-09-06 04:38 | disposition home or self-care (01) ==
LOC: ED 00:52
DX: S92.515A Nondisplaced fracture of proximal phalanx of left lesser toe(s), initial encounter for closed fracture (principal); G43.909 Migraine, unspecified, not intractable, without status migrainosus; Z90.710 Acquired absence of both cervix and uterus; Z98.890 Other specified postprocedural states; Z79.1 Long term (current) use of non-steroidal anti-inflammatories (NSAID); Z79.899 Other long term (current) drug therapy; X58.XXXA Exposure to other specified factors, initial encounter; Y93.89 Activity, other specified; Y92.89 Other specified places as the place of occurrence of the external cause; Y99.8 Other external cause status
CPT/HCPCS: 99283